=== PATIENT | female | born 1965 | race Caucasian/White ===

== ENCOUNTER → 2017-09-04 | Outpatient (CLI) | payer OTHER, SELFPAY | PROVIDERS: Family Provider Family Medicine; Visit Provider Physician Assistant | DX: M79.642 Pain in left hand (principal) | CPT/HCPCS: 73130 ==

== ENCOUNTER 2018-01-08 11:05 | Observation (INO) ==
--- NOTE | 2018-01-08 13:03 | History & Physical Report ---
*Admission Date: 01/08/18 <Karen Jones 01/08/18 13:43> *Chief complaint: dizziness, fatigue, chills, night sweats <Karen Jones 13:43> *History of present illness: Ms Frost is a 52yo female who presented to the office today c/o myalgias for the past 4-6 weeks. They seemed to be getting worse over the past week and she was concerned. She has been fatigued for 4-6 weeks and this is getting worse as well. Pt sts she has been eating ice frequently and is SOA. She now is getting lightheaded when she bends over. She states when she lays down at night she can hear what sounds like " a whitley drum beating in her ear." She has had a lot of night sweats in the last week. She was evaluated in the office and her HGB was 6.4. She was admitted for a blood transfusion. Anemia studies were drawn in the office. <Karen Jones 01/08/18 13:43> [facility] History Medical History: Reports:: Depression <Karen Jones 01/08/18 13:43> Other Surgeries: Yes: Appendectomy, , Hysterectomy-Partial <Karen Jones 01/08/18 13:43> Comment: fibroids removed, root canal <Karen Jones 01/08/18 13:43> - *Social History Smoking Status: Never smoker <Karen Jones 01/08/18 13:43> *Family Hx:: Non-contributory <Karen Jones 01/08/18 13:43> Review of Systems - Constitutional Reports chills, Reports fatigue, Reports lack of energy, Reports malaise, Reports night sweats, Reports weakness <Karen Jones 01/08/18 13:43> - Eyes Denies blurry vision, Denies double vision <Karen Jones 01/08/18 13:43> - ENT Reports abnormal hearing (roaring in the ears), Reports dizziness, Reports headache(s), Reports dizziness, Denies nasal congestion <Karen Jones 01/08 13:43> - *Cardiovascular Denies chest pain <Karen Jones 01/08/18 13:43> - *Respiratory Reports shortness of breath, Denies cough <Karen Jones 01/08/18 13:43> - *Gastrointestinal Denies abdominal pain, Denies black, tarry stools, Denies nausea, Denies vomiting <Karen Jones - 01/08/18 13:43> - *Genitourinary Denies abnormal periods <Karen Jones 01/08/18 13:43> - *Musculoskeletal Reports joint pain, Reports muscle cramps, Reports body aches <Karen Jones 01/08/18 13:43> - *Neurologic Reports unsteadiness, Reports dizziness, Reports headache(s), Reports weakness, Denies seizure-like activity <Karen Jones 01/08/18 13:43> Meds Home Medications Medication Instructions Recorded Confirmed Type Escitalopram Oxalate 10 mg PO DAILY 01/08/18 01/08/18 History Meloxicam 15 mg PO DAILY 01/08/18 01/08/18 History <Nii Moser - 01/08/18 17:38> Allergies Allergy/AdvReac Type Severity Reaction Status Date / Time No Known Allergies Allergy Unverified 01/08/18 13:18 <Nii Moser - 01/08/18 17:38> Exam Vital signs and Labs for Last 24 Hours: Temp Pulse Resp BP Pulse Ox 98.7 F 73 16 121/69 100 01/08/18 16:50 01/08/18 16:50 01/08/18 16:50 01/08/18 16:50 01/08/18 16:50 Laboratory Results - last 24 hr 01/08/18 13:05: WBC 4.9, RBC 3.58 L, Hgb 6.3 L*, Hct 23.9 L*, MCV 66.8 L, MCH 17.7 L, MCHC 26.5 L, RDW 18.5 H, Plt Count 201, MPV 9.6, Neut % (Auto) 60.7, Lymph % (Auto) 26.7, [place] % (Auto) 8.3, Eos % (Auto) 4.0, Baso % (Auto) 0.5, Neut # (Auto) 3.0, Lymph # (Auto) 1.3, [place] # (Auto) 0.4, Eos # (Auto) 0.2, Baso # (Auto) 0.0 01/08/18 13:05: Sodium 141, Potassium 4.2, Chloride 106, Carbon Dioxide 27, Anion Gap 12.2, BUN 19 H, Creatinine 0.95, Estimated Creat Clear 77, Estimated GFR 62, Est GFR ( Amer) 74, Glucose 130 H, Calcium 8.9, Total Bilirubin 0.2, AST 17, ALT 21, Alkaline Phosphatase 84, Total Protein 5.9 L, Albumin 3.3 L , Globulin 2.6, Albumin/Globulin Ratio 1.3 01/08/18 13:05: Blood Type A Positive, Antibody Screen Negative, Crossmatch (AHG ) See Detail 01/08/18 13:05: Blood Type Cancelled, Antibody Screen Cancelled 01/08/18 13:10: Blood Type Confirm A Positive <Javier Moserian - 01/08/18 17:38> Temp Pulse Resp BP Pulse Ox 98.5 F 89 20 121/55 100 01/08/18 12:44 01/08/18 12:44 01/08/18 12:44 01/08/18 12:44 01/08/18 12:44 <Karen Jones - 01/08/18 13:43> I & O for Last 24 hours: Intake & Output 01/06/18 01/07/18 01/08/18 01/09/18 11:59 11:59 11:59 11:59 Weight 156 lb 1 oz <Nii Moser - 01/08/18 17:38> Intake & Output 01/06/18 01/07/18 01/08/18 01/09/18 11:59 11:59 11:59 11:59 Weight 156 lb 1 oz <Karen Jones - 01/08/18 13:43> - Constitutional Comments: Appears fatigued, pale <Karen Jones - 01/08/18 13:43> - *Routine HEENT Exam Head: Present: normocephalic, atraumatic <Karen Jones - 01/08/18 13:43> Eye: Present: EOMI, PERRL <Karen Jones - 01/08/18 13:43> ENT: Present: mucous membranes moist <Karen Jones - 01/08/18 13:43> - *Routine Neck Exam Present: supple, full ROM <Karen Jones 01/08/18 13:43> - *Routine Respiratory Exam Present: CTA bilaterally <Karen Jones 01/08/18 13:43> - *Routine Cardiovascular Exam Present: RRR <[facility] 01/08/18 13:43> - *Routine Abdominal Exam Present: soft, normoactive bowel sounds. Absent: tenderness <Karen Jones 01/08/18 13:43> - *Routine Extremities Exam Absent: edema <Karen Jones 01/08/18 13:43> - *Routine Skin Exam Present: pallor <Karen Jones 01/08/18 13:43> - *Routine Neurological Exam Present: alert, oriented X3 <Karen Jones 01/08/18 13:43> H&P: Result - Labs Labs: Short CBC 01/08/18 Range/Units 13:05 WBC 4.9 (4.8-10.8) K/mm3 Hgb 6.3 L* (12.2-16.2) g/dL Hct 23.9 L* (37.0-47.0) % Plt Count 201 (142-424) K/mm3 BMP 01/08/18 13:05 Sodium 141 Potassium 4.2 Chloride 106 Carbon Dioxide 27 BUN 19 H Creatinine 0.95 Glucose 130 H Calcium 8.9 Liver Function 01/08/18 Range/Units 13:05 Total Bilirubin 0.2 (0.2-1.0) mg/dL AST 17 (15-37) U/L ALT 21 (12-78) U/L Alkaline Phosphatase 84 (46-116) U/L Albumin 3.3 L (3.4-5.0) gm/dL <Nii Moser 01/08/18 17:38> Assessment and Plan (1) Symptomatic anemia Current visit: Yes Status: Acute Category: Medical Code(s): D64.9 - Anemia , unspecified (2) Depression Current visit: Yes Status: Chronic Category: Medical Code(s): F32.9 - Major depressive disorder, single episode, unspecified <Nii Moser 01/08/18 17:38> (1) Symptomatic anemia Current visit: Yes Status: Acute Category: Medical Code(s): D64.9 - Anemia , unspecified (2) Depression Current visit: Yes Status: Chronic Category: Medical Code(s): F32.9 - Major depressive disorder, single episode, unspecified <Karen Jones - 01/08/18 12:58> - Assessment and plan all Dx Assessment and Plan for all problems:: Saw patient, concur with above note. She appears to be iron deficient with MCV being so low. <Nii Moser - 01/08/18 17:38> Will transfuse with 3 units of PRBC's today and get an 1 hour post H&H. Anemia studies were drawn in the office. Will get a stool for blood as well. Possible discharge home tomorrow if H&H improves. <Karen Jones - 01/08/18 13:43>
[2018-01-08 13:19] LABS: Basophils % 0.5 % (0.1-2.0); Eosinophils # 0.2 K/mm3 (0.0-0.4); Lymphocytes # 1.3 K/mm3 (0.7-4.5); Lymphocytes % 26.7 K/mm3 (10-50); Mean Corpuscular HGB Conc 26.5 g/dL (31.8-35.4); Mean Corpuscular Hemoglobin 17.7 pg (27.0-31.2); Mean Corpuscular Volume 66.8 fl (81-99); Mean Platelet Volume 9.6 fl (7.4-10.4); Monocytes # 0.4 K/mm3 (0.1-1.0); Monocytes % 8.3 % (1.7-9.3); Neutrophils % 60.7 % (37.0-80.0); Platelet Count 201 K/mm3 (142-424); Red Blood Count 3.58 M/mm3 (4.20-5.40); Red Cell Distribution Width 18.5 % (11.5-17.5); White Blood Count 4.9 K/mm3 (4.8-10.8)
[2018-01-08 13:25] LABS: Hemoglobin 6.3 g/dL (12.2-16.2)
[2018-01-08 13:26] LABS: Hematocrit 23.9 % (37.0-47.0)
[2018-01-08 13:46] LABS: Albumin Level 3.3 gm/dL (3.4-5.0); Albumin/Globulin Ratio 1.3 (1.1-1.8); Anion Gap 12.2 mEq/L (5-15); Bilirubin,Total 0.2 mg/dL (0.2-1.0); Calcium 8.9 mg/dL (8.5-10.1); Globulin 2.6 gm/dl (1.3-3.2); Potassium 4.2 mmoL/L (3.5-5.1); Total Protein,Serum 5.9 gm/dL (6.4-8.2)
--- NOTE | 2018-01-08 14:16 | Pharmacy Consult Notes ---
[facility] Pharmacy VTE Monitoring - Patient Demographics Admission date: 01/08/18 Report Date: 01/08/18 Time: 14:16 Allergies/Adverse Reactions: Patient Allergies No Known Allergies Allergy (Unverified 01/08/18 13:18) Height: 1.57 m Weight: 70.789 kg Patient Problems: Current Active Problems Symptomatic anemia (Acute) Depression (Chronic) - VTE Risk Labs: VTE Related Lab Results Hgb 6.3 g/dL (12.2-16.2) L* 01/08/18 13:05 Hct 23.9 % (37.0-47.0) L* 01/08/18 13:05 Plt Count 201 K/mm3 (142-424) 01/08/18 13:05 BUN 19 mg/dL (7-18) H 01/08/18 13:05 Creatinine 0.95 mg/dL (0.55-1.02) 01/08/18 13:05 Estimated Creat Clear 77 mL/min (0-300) 01/08/18 13:05 Clinical Trial Participant: No - Prophylaxis VTE Prophylaxis Ordered?: Yes Types of VTE Prophylaxis: TEDS Knee High
[2018-01-09 05:35] LABS: Hematocrit 36.3 % (37.0-47.0)
[2018-01-09 05:36] LABS: Hemoglobin 10.7 g/dL (12.2-16.2)
--- NOTE | 2018-01-09 08:24 | Progress Note ---
<Karen Jones - Last Filed: 01/09/18 08:22> Internal Medicine - PN: Subj *Date: 01/09/18 *Time: 08:22 Interval history: Patient feeling much better today. Denies any shortness of breath, dizziness, or nausea. She states she feels like a new person. She is ready to go home. Exam Vital signs and Labs for Last 24 Hours: Temp Pulse Resp BP Pulse Ox 97.8 F 79 18 115/64 99 01/09/18 08:00 01/09/18 08:00 01/09/18 08:00 01/09/18 08:00 01/09/18 08:00 Laboratory Results - last 24 hr 01/08/18 13:05: WBC 4.9, RBC 3.58 L, Hgb 6.3 L*, Hct 23.9 L*, MCV 66.8 L, MCH 17.7 L, MCHC 26.5 L, RDW 18.5 H, Plt Count 201, MPV 9.6, Neut % (Auto) 60.7, Lymph % (Auto) 26.7, [place] % (Auto) 8.3, Eos % (Auto) 4.0, Baso % (Auto) 0.5, Neut # (Auto) 3.0, Lymph # (Auto) 1.3, [place] # (Auto) 0.4, Eos # (Auto) 0.2, Baso # (Auto) 0.0 01/08/18 13:05: Sodium 141, Potassium 4.2, Chloride 106, Carbon Dioxide 27, Anion Gap 12.2, BUN 19 H, Creatinine 0.95, Estimated Creat Clear 77, Estimated GFR 62, Est GFR ( Amer) 74, Glucose 130 H, Calcium 8.9, Total Bilirubin 0.2, AST 17, ALT 21, Alkaline Phosphatase 84, Total Protein 5.9 L, Albumin 3.3 L , Globulin 2.6, Albumin/Globulin Ratio 1.3 01/08/18 13:05: Blood Type A Positive, Antibody Screen Negative, Crossmatch (AHG ) See Detail 01/08/18 13:05: Blood Type Cancelled, Antibody Screen Cancelled 01/08/18 13:10: Blood Type Confirm A Positive 01/09/18 04:45: Hgb 10.7 L D, Hct 36.3 L I & O for Last 24 hours: Intake & Output 01/06/18 01/07/18 01/08/18 01/09/18 11:59 11:59 11:59 11:59 Intake Total 622 / 622 Balance 622 / 622 Weight 156 lb 1 oz - Constitutional no acute distress - *Routine Respiratory Exam Present: CTA bilaterally - *Routine Cardiovascular Exam Present: RRR - *Routine Abdominal Exam Present: soft, normoactive bowel sounds. Absent: tenderness - *Routine Extremities Exam Absent: edema - *Routine Skin Exam Comments: much better color Assessment and Plan (1) Symptomatic anemia Current visit: Yes Status: Acute Category: Medical Code(s): D64.9 - Anemia , unspecified (2) Depression Current visit: Yes Status: Chronic Category: Medical Code(s): F32.9 - Major depressive disorder, single episode, unspecified - Assessment and plan all Dx Assessment and Plan for all problems:: Patient's H&H is much better today. She is stable for discharge home on iron. Will await anemia studies from the office. <Nii Moser - Last Filed: 01/09/18 08:59> Internal Medicine - PN: Subj *Date: 01/09/18 *Time: 08:58 Exam Vital signs and Labs for Last 24 Hours: Temp Pulse Resp BP Pulse Ox 97.8 F 79 18 115/64 99 01/09/18 08:00 01/09/18 08:00 01/09/18 08:00 01/09/18 08:00 01/09/18 08:00 Laboratory Results - last 24 hr 01/08/18 13:05: WBC 4.9, RBC 3.58 L, Hgb 6.3 L*, Hct 23.9 L*, MCV 66.8 L, MCH 17.7 L, MCHC 26.5 L, RDW 18.5 H, Plt Count 201, MPV 9.6, Neut % (Auto) 60.7, Lymph % (Auto) 26.7, [place] % (Auto) 8.3, Eos % (Auto) 4.0, Baso % (Auto) 0.5, Neut # (Auto) 3.0, Lymph # (Auto) 1.3, [place] # (Auto) 0.4, Eos # (Auto) 0.2, Baso # (Auto) 0.0 01/08/18 13:05: Sodium 141, Potassium 4.2, Chloride 106, Carbon Dioxide 27, Anion Gap 12.2, BUN 19 H, Creatinine 0.95, Estimated Creat Clear 77, Estimated GFR 62, Est GFR ( Amer) 74, Glucose 130 H, Calcium 8.9, Total Bilirubin 0.2, AST 17, ALT 21, Alkaline Phosphatase 84, Total Protein 5.9 L, Albumin 3.3 L , Globulin 2.6, Albumin/Globulin Ratio 1.3 01/08/18 13:05: Blood Type A Positive, Antibody Screen Negative, Crossmatch (AHG ) See Detail 01/08/18 13:05: Blood Type Cancelled, Antibody Screen Cancelled 01/08/18 13:10: Blood Type Confirm A Positive 01/09/18 04:45: Hgb 10.7 L D, Hct 36.3 L I & O for Last 24 hours: Intake & Output 01/06/18 01/07/18 01/08/18 01/09/18 11:59 11:59 11:59 11:59 Intake Total 622 / 622 Balance 622 / 622 Weight 156 lb 1 oz Assessment and Plan (1) Symptomatic anemia Current visit: Yes Status: Acute Category: Medical Code(s): D64.9 - Anemia , unspecified (2) Depression Current visit: Yes Status: Chronic Category: Medical Code(s): F32.9 - Major depressive disorder, single episode, unspecified - Assessment and plan all Dx Assessment and Plan for all problems:: Saw patient, concur with above note.
--- NOTE | 2018-01-09 11:30 | Discharge Summary ---
General - General Admission date:: 01/08/18 Discharge date: 01/09/18 HPI HPI: Ms Frost is a 52yo female who presented to the office today c/o myalgias for the past 4-6 weeks. They seemed to be getting worse over the past week and she was concerned. She has been fatigued for 4-6 weeks and this is getting worse as well. Pt sts she has been eating ice frequently and is SOA. She now is getting lightheaded when she bends over. She states when she lays down at night she can hear what sounds like " a whitley drum beating in her ear." She has had a lot of night sweats in the last week. She was evaluated in the office and her HGB was 6.4. She was admitted for a blood transfusion. Anemia studies were drawn in the office. Hospital Course Hospital Course: The patient was transfused. All of her symptoms resolved. She felt much better and her H&H improved. She was stable to be discharged home on iron and will f/u in the office. Objective Vital signs: Temp Pulse Resp BP Pulse Ox 97.8 F 79 18 115/64 99 01/09/18 08:00 01/09/18 08:00 01/09/18 08:00 01/09/18 08:00 01/09/18 08:00 Narrative: - Constitutional Comments: Appears fatigued, pale - *Routine HEENT Exam Head: Present: normocephalic, atraumatic Eye: Present: EOMI, PERRL ENT: Present: mucous membranes moist - *Routine Neck Exam Present: supple, full ROM - *Routine Respiratory Exam Present: CTA bilaterally - *Routine Cardiovascular Exam Present: RRR - *Routine Abdominal Exam Present: soft, normoactive bowel sounds. Absent: tenderness - *Routine Extremities Exam Absent: edema - *Routine Skin Exam Present: pallor - *Routine Neurological Exam Present: alert, oriented X3 Results Labs on day of discharge: Labs from last 24 hours 01/09/18 01/08/18 01/08/18 04:45 13:10 13:05 WBC RBC Hgb 10.7 L D Hct 36.3 L MCV MCH MCHC RDW Plt Count MPV Neut % (Auto) Lymph % (Auto) [place] % (Auto) Eos % (Auto) Baso % (Auto) Neut # (Auto) Lymph # (Auto) [place] # (Auto) Eos # (Auto) Baso # (Auto) Sodium Potassium Chloride Carbon Dioxide Anion Gap BUN Creatinine Estimated Creat Clear Estimated GFR Est GFR ( Amer) Glucose Calcium Total Bilirubin AST ALT Alkaline Phosphatase Total Protein Albumin Globulin Albumin/Globulin Ratio Blood Type Cancelled Blood Type Confirm A Positive Antibody Screen Cancelled Crossmatch (AHG) 01/08/18 01/08/18 01/08/18 13:05 13:05 13:05 WBC 4.9 RBC 3.58 L Hgb 6.3 L* Hct 23.9 L* MCV 66.8 L MCH 17.7 L MCHC 26.5 L RDW 18.5 H Plt Count 201 MPV 9.6 Neut % (Auto) 60.7 Lymph % (Auto) 26.7 [place] % (Auto) 8.3 Eos % (Auto) 4.0 Baso % (Auto) 0.5 Neut # (Auto) 3.0 Lymph # (Auto) 1.3 [place] # (Auto) 0.4 Eos # (Auto) 0.2 Baso # (Auto) 0.0 Sodium 141 Potassium 4.2 Chloride 106 Carbon Dioxide 27 Anion Gap 12.2 BUN 19 H Creatinine 0.95 Estimated Creat Clear 77 Estimated GFR 62 Est GFR ( Amer) 74 Glucose 130 H Calcium 8.9 Total Bilirubin 0.2 AST 17 ALT 21 Alkaline Phosphatase 84 Total Protein 5.9 L Albumin 3.3 L Globulin 2.6 Albumin/Globulin Ratio 1.3 Blood Type A Positive Blood Type Confirm Antibody Screen Negative Crossmatch ([facility]) See Detail DS: Diagnosis - Discharge Diagnosis (1) Symptomatic anemia Status: Acute (2) Depression Status: Chronic Discharge Plan - Patient Discharge Instructions ACTIVITY: Continue current activity DIET: continue same diet Patient Instructions: Anemia - Follow up Plan Follow up with: Nii Moser MD [Primary Care Provider] - 1 week Disposition: Home, Self-Group Home Medications: Home Medications Medication Instructions Recorded Confirmed Type Escitalopram Oxalate 10 mg PO DAILY 01/08/18 01/08/18 History Meloxicam 15 mg PO DAILY 01/08/18 01/08/18 History Prescriptions/Medication Reconciliation: New Ferrous Sulfate 325 mg PO TID #90 tab Continue Meloxicam 15 mg PO DAILY Escitalopram Oxalate 10 mg PO DAILY
== END 2018-01-09 10:05 | disposition home or self-care (01) ==
LOC: 2ND 12:11 → INTOOBSV 12:11
PROVIDERS: ADMIT Family Medicine; ATTEND Family Medicine
CPT/HCPCS: 36415; 80053; 82272; 85014; 85018; 85025; 86850; G0328; G0378; P9016

== ENCOUNTER → 2018-02-27 08:53 | Outpatient (CLI) | payer OTHER, SELFPAY ==
--- NOTE | 2018-02-27 08:57 | FL_ITS ---
FL upper GI small bowel UGI with small bowel follow-through Ordering Physician: Nate Diggs MD Patient Age: 52 years: Female HISTORY: ITS.REASON: ANEMIA HISTORY of anemia recent colonoscopy was,, with no significant findings TECHNIQUE: Air-contrast UGI followed by SBFT performed by Dr. Shearer 2 minutes 57 seconds fluoroscopy time COMPARISON :None relevant available FINDINGS : Scant view demonstrates prominent levoscoliosis lumbar spine with dextrocurvature at the lower thoracic spine AIR-CONTRAST UGI: Cervical esophagus. Anterior marginal osteophytes C6/7 and C5/6 slightly in impinge upon the posterior aspect of the cervical esophagus but no symptoms of dysphasia reported here. Marked degenerative disc space narrowing C5-C6 and to lesser degree C6/7 C4/5 noted. Thoracic esophagus. Generous indentation from the mildly ectatic aortic knob. Left bronchus from the [place] also slightly indents the esophagus. Tortuous distal esophagus with mild tertiary contractions. Overall however appears distensible with no discrete focal esophageal lesion Generous size sliding hiatal hernia. Approximately one third of stomach is at the lower chest.. GE junction above hiatus distal esophagus with normal mucosal pattern. Mild GE reflux noted. STOMACH: With a hiatal hernia the stomach demonstrates a typical waist like narrowing as it passes through the diaphragmatic hiatus, but otherwise the body and distal stomach appears satisfactory. Pylorus unremarkable. Duodenal bulb unremarkable. Distensible. No ulcer Filling defect pylorus or the distal stomach. SMALL BOWEL SERIES:\. Duodenal loop appears normal, with normal anatomy. Proximal small bowel best visualized. Unremarkable. Satisfactory. Distal small bowel are normal caliber with no significant findings. Region of Terminal ileum appears satisfactory on limited spot views.. There is rapid passage of contrast through the small bowel into the large bowel is seen on the 15-30 minutes KUB. (The oral barium contrast did include a cap of Gastroview) ----IMPRESSION:----- Hiatal hernia.. Negative small bowel series-- 1.... Moderate/generous Hiatal hernia. Up to one third of the stomach involved with this typical sliding hiatal hernia. Trace GE reflux the distal esophagus unremarkable. 2.. Tortuous distal thoracic esophagus with minor occasional tertiary contractions.. No significant lesions of esophagus evident (. Noteprominent levoscoliosis lumbar spine & dextro scoliosis lower thoracic spine likely also contribute to the tortuous appearing thoracic esophagus as well.) 4. Otherwise stomach, Duodenum, pylorus small bowel loop unremarkable.
== END ==
PROVIDERS: Family Provider Family Medicine; PCP Family Medicine; Visit Provider Surgery
DX: D64.9 Anemia, unspecified (principal)
CPT/HCPCS: 74245

== ENCOUNTER → 2018-04-02 16:46 | Outpatient (CLI) | payer OTHER, SELFPAY ==
--- NOTE | 2018-04-02 16:52 | MM_ITS ---
MM Dig screening mamm BI w/CAD CAD Screening COMPARISON: Digital mammograms with CAD 07/10/2016 and 07/07/2015 INDICATION: There is a history of breast cancer patient's mother diagnosed at age 48 and patient's maternal great-grandmother TECHNIQUE: Standard CC and MLO images were obtained. R2 CAD reviewed. FINDINGS: There is a diffusely dense and heterogenic parenchymal pattern lessening the sensitivity mammography. There is no suspicious lesion and there are no suspicious microcalcifications. There are several small nodes in both axilla. IMPRESSION: Dense parenchymal pattern no suspicious lesion seen BI-RADS Category: 1 Negative RECOMMENDED FOLLOW-UP: 1YR - 1 YEAR FOLLOW-UP (A letter has been sent to the patient regarding results of the study.)
== END ==
PROVIDERS: Family Provider Family Medicine; PCP Family Medicine; Visit Provider Obstetrics & Gynecology
DX: Z12.31 Encounter for screening mammogram for malignant neoplasm of breast (principal)
CPT/HCPCS: 77067

== ENCOUNTER → 2018-09-12 13:31 | Outpatient (CLI) | payer BC, SELFPAY ==
--- NOTE | 2018-09-12 13:35 | US_ITS ---
US extremity RT limited CLINICAL INDICATION: Soft tissue mass of the right hip constant pain ITS.REASON: SOFT TISSUE MASS ORDERING PHYSICIAN: Nii Moser MD PATIENT AGE: 52 years Comparison: None FINDINGS: There is an oval 3.4 x 1.4 cm area of heterogeneous slight increase echogenicity corresponding to the palpable abnormality in the right hip. This is subcutaneous in nature and may represent a lipoma. No fluid collection or other significant anomalies are evident. IMPRESSION: 3.4 cm subcutaneous area of slight increased heterogeneous echogenicity corresponding the palpable abnormality in the right hip which may represent a lipoma. Lipomas have variable appearance by ultrasound. CT could confirm this as a lipoma if clinically warranted. Follow-up suggested if pain persists or if abnormality increases in size
== END ==
PROVIDERS: PCP Family Medicine; Visit Provider Family Medicine
DX: M79.9 Soft tissue disorder, unspecified (principal)
CPT/HCPCS: 76882

== ENCOUNTER → 2019-06-18 10:40 | Outpatient (CLI) | payer BC, SELFPAY ==
[2019-06-18 11:05] LABS: Basophils % 0.6 % (0.1-2.0); Eosinophils # 0.3 K/mm3 (0.0-0.4); Hematocrit 40.4 % (37.0-47.0); Hemoglobin 11.6 g/dL (12.2-16.2); Lymphocytes # 1.3 K/mm3 (0.7-4.5); Lymphocytes % 16.6 % (10-50); Mean Corpuscular HGB Conc 28.7 g/dL (31.8-35.4); Mean Corpuscular Hemoglobin 22.4 pg (27.0-31.2); Mean Corpuscular Volume 78.2 fl (81-99); Monocytes # 0.7 K/mm3 (0.1-1.0); Neutrophils # 5.4 K/mm3 (1.8-7.8); Neutrophils % 69.9 % (37.0-80.0); Platelet Count 162 K/mm3 (142-424); Red Blood Count 5.16 M/mm3 (4.20-5.40); White Blood Count 7.7 K/mm3 (4.8-10.8)
[2019-06-18 11:10] LABS: Activated Partial Thrombo Time 23.3 seconds (23.6-34.0); INR 0.96 (0.9-1.1)
== END ==
PROVIDERS: PCP Physician Assistant; Visit Provider Physician Assistant
DX: S02.5XXA Fracture of tooth (traumatic), initial encounter for closed fracture (principal)
CPT/HCPCS: 36415; 85025; 85610; 85730

== ENCOUNTER 2019-10-28 14:38 | Outpatient (CLI) | payer BC, SELFPAY ==
[2019-10-28 14:59] VITALS: BP 131/82; PULSE 61; RESP 18; TEMP 36.4; O2SAT 100
[2019-10-28 15:29] VITALS: BP 134/80; PULSE 69; RESP 18; O2SAT 99
[2019-10-28 15:45] VITALS: BP 141/75; PULSE 57; RESP 18; O2SAT 99
== END 2019-10-28 15:46 | disposition home or self-care (01) ==
LOC: INF 14:38
PROVIDERS: Visit Provider Internal Medicine Medical Oncology
DX: D50.9 Iron deficiency anemia, unspecified (principal)
CPT/HCPCS: 96365; J1439

== ENCOUNTER 2019-11-04 14:19 | Outpatient (CLI) | payer BC, SELFPAY ==
[2019-11-04 14:33] VITALS: BP 120/74; PULSE 67; RESP 18; TEMP 36.9; O2SAT 98
[2019-11-04 15:15] VITALS: BP 144/96; PULSE 59; RESP 18; O2SAT 98
== END 2019-11-04 15:15 | disposition home or self-care (01) ==
LOC: INF 14:19
PROVIDERS: Visit Provider Internal Medicine Medical Oncology
DX: D50.9 Iron deficiency anemia, unspecified (principal)
CPT/HCPCS: 96365; J1439

== ENCOUNTER 2019-12-18 06:57 | Day surgery (SDC) | payer BC, SELFPAY ==
[2019-12-16 14:33] VITALS: BMI 28.3
[2019-12-18] VITALS (7 sets, daily range): BP systolic 104–141; BP diastolic 61–90; PULSE 57–66; RESP 15–18; TEMP 36.2–36.4; O2SAT 94–100
--- NOTE | 2019-12-18 08:05 | HMH.PROC ---
[facility] Procedure Note Procedure Note:: Small bowel enteroscopy procedure Report: Small bowel enteroscopy with cold biopsies Endoscopost: Sal Martino II, MD Referring Physician: Nii Moser MD/Erika Duran MD Date of Procedure: December 18, 2019 Equipment: Olympus PCF 180 pediatric colonoscope Sedation: MAC sedation Indications: Mrs. Frost is a 54-year-old female with iron deficiency anemia. This anemia was initially diagnosed in January 2018 and at that time she received 3 units of PRBCs. At that time she had a colonoscopy (Dr. Nate Diggs) which showed only diverticulosis. She had an upper GI with small bowel follow-through that showed what appeared to be filling defects of the pylorus of the distal stomach. The patient had been sent to Dr. Neal Minor and I suspect had an EGD but this report is not available. There was an M2A that was performed and read by his supervisor baking and this did show the appearance of multiple small angiodysplasias in the proximal small bowel as well as possible forming ulcerations and multiple areas of inflammation of the proximal small bowel. Small bowel enteroscopy was recommended. The patient's iron studies from February 2019 showed serum iron 9.0, TIBC 238 and transferrin saturation of 3.8%. The patient's ferritin was 16.6. The patient did receive parenteral iron infusion on October 28, 2019 and November 04, 2019 and states that she has felt better than she has in a very long time. She was on meloxicam and ibuprofen which were discontinued in October (by Dr. Duran). The patient reports no abdominal pain, weight loss or change in bowel habits. She reports no melena or hematochezia. Procedure: Prior to the procedure, a history and physical exam was performed, and patient's medications and allergies were reviewed. The risks, benefits and alternatives of the sedation and procedure were discussed with the patient. All questions were answered and informed consent was obtained. The patient was brought to the procedure room. Patient identification and proposed procedure were verified by the physician and the nurse. The patient was placed in a left lateral decubitus position and the scope was passed under direct vision. Throughout the procedure, the patient's blood pressure, pulse, and oxygen saturations were monitored continuously. The upper GI endoscopy was accomplished without difficulty. The patient tolerated the procedure well. Findings: The scope was passed directly into the upper esophagus and advanced to the fourth portion of the duodenum and into the mid and distal jejunum with advancement to the hub of the colonoscope. The colonoscope was withdrawn and the jejunal/duodenal conniventes and mucosa were entirely normal. The mucosa was inspected carefully upon withdrawal and there were no areas of edema, erythema, ulceration or angiodysplasias/AVMs. The scope was withdrawn through a normal duodenal bulb and pylorus into the stomach. There was some very mild linear reactive gastropathy of the antrum. There was a large hiatal hernia of 9 cm. There were linear Saul's erosions and ulceration with some old heme (coffee-ground) and black eschar. The diaphragmatic hiatus was at 40 cm. The top of the gastric fold/GE junction was at 31 cm. This was consistent with 9 cm hiatal hernia. Biopsies were taken from the gastric body and antrum. The scope was then withdrawn into the esophagus. There was no evidence of reflux esophagitis or Krueger's. There were tertiary contractions and evidence mild esophageal dysmotility or presbyesophagus. Impression: 1. Large hiatal hernia (9 cm) with linear Saul's erosions/ulcerations (with old heme/coffee-ground/black eschar) 2. Mild linear reactive gastropathy 3. Presbyesophagus 4. Normal small bowel from duodenum to mid/distal jejunum?no angiodysplasia/AVMs or ulceration or erosions identified Plan: This patient has chronic iron deficiency anemia related to her Came
--- NOTE | 2019-12-18 08:16 | HMH.ANESCL ---
[facility] Anesthesia Checklist - Structural Data Admitted From: Home Planned Operative Procedure/s: egd Consent for Planned Operative Procedure(s) Verified: Yes - Additional verifications Anesthesia Reactions: No - Airway Assessment C-Spine Mobility Assessed: Yes TMJ Mobility Assessed: Yes Dentition: Good Dentition - Neurological Assessment Level of Consciousness: Awake, Alert, Appropriate - Anesthesia Plan Anesthesia Risk discussed: Yes Anesthesia Plan: Verified ASA Class: II Anesthesia Type: MAC [facility] History I have reviewed the patient's past medical history: Yes Medical History: Reports:: Depression, MRSA (lt knee) Denies:: Cancer, Diabetes Mellitus Type 1, Diabetes Mellitus Type 2, Internal Pacemaker, Lung Disease, Seizures *Have you ever received a pneumonia vaccine?: No *Have you received a flu vaccine this season?: No Other Medical History: Reports: Anemia Anesthesia experience/problems:: none Other Surgeries: Yes: Appendectomy, Colonoscopy, , Hysterectomy-Total, Hysterectomy-Partial, Other. No: Pacemaker Amputation: No Fractures: No - *Social History Educational Level: Completed High School Smoking Status: Never smoker Alcohol Intake: current Alcohol Intake Frequency:: a few times a week Substance Use Type: denies use *Occupational Status:: employed Housing: house Household Members: spouse, children *Travel in the last 8 weeks: None - Psychiatric History Pschychiatric History:: Reports:: Depression Family Hx:: Cancer, Hyperlipidemia, Thyroid Disorder
== END 2019-12-18 09:28 | disposition home or self-care (01) ==
PROVIDERS: PCP Family Medicine; Visit Provider Internal Medicine Gastroenterology
PROC: (CPT 44360; principal; 2019-12-18 08:00)
DX: D50.9 Iron deficiency anemia, unspecified (principal); K31.9 Disease of stomach and duodenum, unspecified; K44.9 Diaphragmatic hernia without obstruction or gangrene; K25.9 Gastric ulcer, unspecified as acute or chronic, without hemorrhage or perforation; K22.4 Dyskinesia of esophagus; F41.9 Anxiety disorder, unspecified; Z80.3 Family history of malignant neoplasm of breast; Z80.1 Family history of malignant neoplasm of trachea, bronchus and lung
CPT/HCPCS: 44361; J2704

== ENCOUNTER → 2021-04-10 08:04 | Outpatient (CLI) | payer BC, SELFPAY ==
--- NOTE | 2021-04-10 08:06 | MM_ITS ---
PROCEDURE INFORMATION: Exam: MG Screening 3D Mammography Exam date and time: 04/10/2021 8:06 AM Age: 55 years old Clinical indication: Encounter for screening mammogram for malignant neoplasm of breast TECHNIQUE: Imaging protocol: Screening tomosynthesis and 2D mammography including computer-aided detection (CAD) when performed. COMPARISON: 1. MG SCBI MM Dig screening mamm BI w/CAD 04/02/2018 4:57 PM 2. MG DMSB DIG MAMM-SCREEN MAL 07/10/2016 2:26 PM FINDINGS: MAMMOGRAPHY: Breast composition: The breast tissue is heterogeneously dense, which may obscure small masses. Mass: None. Architectural distortion: None. Calcifications: No suspicious calcifications. Asymmetric density: None. Skin thickening: None. Axillary adenopathy: None. IMPRESSION: No mammographic evidence of malignancy. Annual screening is recommended unless otherwise clinically indicated. ASSESSMENT: BI-RADS Category 1: Negative
== END ==
PROVIDERS: PCP Family Medicine; Visit Provider Physician Assistant
DX: Z12.31 Encounter for screening mammogram for malignant neoplasm of breast (principal)
CPT/HCPCS: 77063; 77067

== ENCOUNTER → 2021-10-10 11:02 | Outpatient (CLI) | payer BC, SELFPAY ==
[2021-10-11 06:08] LABS: Covid-19 Nasal PCR Sendout Lex POSITIVE
== END ==
PROVIDERS: Visit Provider Nurse Practitioner
DX: U07.1 COVID-19 (principal)
CPT/HCPCS: C9803; U0004; U0005

== ENCOUNTER → 2022-01-26 07:40 | Outpatient (CLI) | payer BC, SELFPAY ==
[2022-01-27 08:16] LABS: FSH 94.3 mIU/mL (.)
== END ==
PROVIDERS: PCP Family Medicine; Visit Provider Family Medicine
DX: R23.2 Flushing (principal)
CPT/HCPCS: 36415; 83001; 83002

== ENCOUNTER → 2022-02-26 10:16 | Outpatient (CLI) | payer BC, SELFPAY ==
[2022-02-26 12:06] LABS: Alanine Aminotransferase 18 U/L (12-78); Albumin/Globulin Ratio 1.4 (1.1-1.8); Alkaline Phosphatase 126 U/L (38-126); Anion Gap 11.8 mEq/L (5-15); Aspartate Amino Transferase 27 U/L (14-36); Bilirubin,Total 0.2 mg/dl (0.2-1.3); Blood Urea Nitrogen 28 mg/dl (7-17); Calcium 9.7 mg/dl (8.4-10.2); Carbon Dioxide 30 mmol/L (22.0-30.0); Chloride 104 mmol/L (98-107); Chol/HDL Ratio 4.2 (1-3.5); Cholesterol 227 mg/dl (140-200); Estimated Glomerular Filt Rate 74 ml/min (>60); GFR (African American) 89 ML/MIN (>60); Globulin 2.8 g/dL (1.3-3.2); Glucose 117 mg/dl (74-100); HDL Cholesterol 54 mg/dl (40-60); Potassium 4.8 mmoL/L (3.5-5.1); Sodium 141 mmol/L (136-145); Total Protein,Serum 6.8 g/dl (6.3-8.2); Triglycerides 93 mg/dl (30-150); VLDL Cholesterol 19 mg/dL (0-40)
[2022-02-26 12:14] LABS: Iron 112 ug/dL (37-170)
[2022-02-26 12:18] LABS: Direct LDL Cholesterol 123.89 mg/dL (100-129)
[2022-02-26 12:24] LABS: Free T4 (Free Thyroxine) 0.83 ng/dl (0.78-2.19); Total Iron Binding Capacity 299 ug/dL (265-497)
[2022-02-26 12:26] LABS: 25-OH Vitamin D, Total 48.7 ng/mL (30-100)
[2022-02-26 12:40] LABS: Thyroid Stimulating Hormone 1.35 uIU/mL (0.465-4.68)
[2022-02-26 12:44] LABS: Ferritin 37.5 ng/ml (11.1-264)
== END ==
PROVIDERS: PCP Family Medicine; Visit Provider Physician Assistant
DX: E78.2 Mixed hyperlipidemia (principal); D50.9 Iron deficiency anemia, unspecified; K29.60 Other gastritis without bleeding; E55.9 Vitamin D deficiency, unspecified; Z13.29 Encounter for screening for other suspected endocrine disorder
CPT/HCPCS: 36415; 80053; 80061; 82306; 82728; 83540; 83550; 84439; 84443

== ENCOUNTER → 2022-07-19 13:09 | Outpatient (CLI) | payer BC, SELFPAY ==
--- NOTE | 2022-07-19 13:31 | MM_ITS ---
PROCEDURE INFORMATION: Exam: MG Bilateral Screening 3D Mammography Exam date and time: 07/19/2022 1:24 PM Age: 56 years old Clinical indication: Screening examination TECHNIQUE: Imaging protocol: Bilateral Screening tomosynthesis and 2D mammography including computer-aided detection (CAD) when performed. COMPARISON: 1. MG MM DIG SCREENING MAMM BI W/CAD 04/10/2021 8:02 AM 2. MG SCBI MM Dig screening mamm BI w/CAD 04/02/2018 4:57 PM FINDINGS: MAMMOGRAPHY: Breast composition: The breasts are heterogeneously dense, which may obscure small masses. Mass: None. Architectural distortion: None. Calcifications: No suspicious calcifications. Asymmetric density: None. Skin thickening: None. Axillary adenopathy: None. IMPRESSION: No mammographic evidence of malignancy. Annual screening is recommended unless otherwise clinically indicated. ASSESSMENT: BI-RADS Category 1: Negative
== END ==
PROVIDERS: PCP Family Medicine; Visit Provider Physician Assistant
DX: Z12.31 Encounter for screening mammogram for malignant neoplasm of breast (principal)
CPT/HCPCS: 77063; 77067

== ENCOUNTER → 2023-07-30 16:41 | Outpatient (CLI) | payer BC, SELFPAY ==
--- NOTE | 2023-07-30 16:43 | MM_ITS ---
PROCEDURE INFORMATION: Exam: MG Bilateral Screening 3D Mammography Exam date and time: 07/30/2023 4:29 PM Age: 57 years old Clinical indication: Screening examination TECHNIQUE: Imaging protocol: Bilateral Screening tomosynthesis and 2D mammography including computer-aided detection (CAD) when performed. COMPARISON: 1. MG MM DIG SCREENING MAMM BI W/CAD 07/19/2022 1:24 PM 2. MG MM DIG SCREENING MAMM BI W/CAD 04/10/2021 8:02 AM FINDINGS: MAMMOGRAPHY: Breast composition: The breasts are heterogeneously dense, which may obscure small masses. Mass: None. Architectural distortion: None. Calcifications: No suspicious calcifications. Asymmetric density: None. Skin thickening: None. Axillary adenopathy: None. IMPRESSION: No mammographic evidence of malignancy. Annual screening is recommended unless otherwise clinically indicated. ASSESSMENT: BI-RADS Category 1: Negative
== END ==
PROVIDERS: PCP Family Medicine; Visit Provider Physician Assistant
DX: Z12.31 Encounter for screening mammogram for malignant neoplasm of breast (principal)
CPT/HCPCS: 77063; 77067

== ENCOUNTER 2024-08-05 07:58 | Outpatient (CLI) | payer BC, SELFPAY ==
--- NOTE | 2024-08-05 07:59 | MM_ITS ---
PROCEDURE INFORMATION: Exam: MG Bilateral Screening 3D Mammography Exam date and time: 08/05/2024 7:49 AM Age: 58 years old Clinical indication: Screening mammogram TECHNIQUE: Imaging protocol: Bilateral Screening tomosynthesis and 2D mammography including computer-aided detection (CAD) when performed. COMPARISON: 1. MG MM DIG SCREENING MAMM BI W/CAD 07/30/2023 4:29 PM 2. MG MM DIG SCREENING MAMM BI W/CAD 07/19/2022 1:24 PM 3. MG MM DIG SCREENING MAMM BI W/CAD 04/10/2021 8:02 AM 4. MG SCBI MM Dig screening mamm BI w/CAD 04/02/2018 4:57 PM FINDINGS: MAMMOGRAPHY: Breast composition: The breast is heterogeneously dense, which may obscure small masses. Mass: None. Architectural distortion: No new or suspicious architectural distortion. Calcifications: No new or suspicious calcifications are present Asymmetric density: No new or suspicious asymmetric density is present Skin thickening: None. Axillary adenopathy: None. IMPRESSION: No mammographic evidence of malignancy. Recommend annual screening mammography unless otherwise clinically indicated. ASSESSMENT: BI-RADS category 1: Negative.
== END 2024-08-05 23:59 | disposition home or self-care (01) ==
LOC: RAD 07:59
PROVIDERS: PCP Family Medicine; Visit Provider Obstetrics & Gynecology
DX: Z12.31 Encounter for screening mammogram for malignant neoplasm of breast (principal)
CPT/HCPCS: 77063; 77067